=== PATIENT | female | born 1950 | race Caucasian/White ===

== ENCOUNTER 2017-04-09 16:35 | Outpatient (CLI) | payer MEDICARE ==
--- NOTE | 2017-04-09 17:53 | RAD ---
AP ABDOMINAL RADIOGRAPH 04/09/17 HISTORY: Stricture of sigmoid colon. COMPARISON: 03/02/16. FINDINGS: There is radiopaque suture material overlying the right abdomen as well as the pelvis also seen on pr ior study. There is a moderate amount of retained fecal material in the region of the ascending colon . Bowel gas pattern is otherwise nonspecific. No dilated loops of small bowel are appreciated. Vascul ar calcifications and phleboliths again overlie the pelvis. Degenerative changes are noted in the spi ne. IMPRESSION: Postsurgical changes of the abdomen. There is mild distention of the ascending colon with moderate am ount of retained fecal material. Bowel gas pattern is otherwise nonspecific. POS: CHANTELLE
== END 2017-04-09 16:36 | disposition home or self-care (01) ==
LOC: RAD 16:35
PROVIDERS: ATTEND Internal Medicine Gastroenterology
DX: K56.699 Other intestinal obstruction unspecified as to partial versus complete obstruction (principal); D50.0 Iron deficiency anemia secondary to blood loss (chronic); R14.0 Abdominal distension (gaseous); Z98.890 Other specified postprocedural states
CPT/HCPCS: 74018

== ENCOUNTER 2017-05-26 10:00 | Inpatient (IN) | payer MEDICARE ==
[2017-05-26 11:01] VITALS: BMI 22.8
[2017-05-27] MEDS ORDERED: cefOXitin 2 GM in Sodium Chloride 0.9% 100 ML IVPB SCH ×2 (06:15→14:00)
[2017-05-27] MEDS ORDERED: Fentanyl 250 MCG/5 ML VIAL ONE (06:39)
[2017-05-27] MEDS ORDERED: Midazolam HCl 2 mg/2 ml Vial ONE ×2 (06:39→07:09)
[2017-05-27] MEDS ORDERED: Ondansetron HCl/PF 4 MG/2 ML Vial ONE ×2 (06:52→11:26)
[2017-05-27] MEDS ORDERED: Fentanyl 100 MCG/2 ML VIAL ONE (07:09)
[2017-05-27] MEDS ORDERED: HYDROmorphone 2 MG/ML VIAL SLOW IVP PRN (09:53)
[2017-05-27] MEDS ORDERED: Promethazine HCl 25 MG/ML VIAL IM PRN ×3 (09:53→17:09)
[2017-05-27] MEDS ORDERED: Promethazine HCl 25 MG/ML VIAL SLOW IVP PRN (09:53)
[2017-05-27] MEDS ORDERED: Ondansetron HCl/PF 4 MG/2 ML Vial IVP PRN ×3 (09:53→17:09)
[2017-05-27] MEDS ORDERED: cefOXitin 2 GM VIAL ONE (10:14)
[2017-05-27] MEDS ORDERED: Bupivacaine HCl 0.5%/Epinephrine 1:200,000/PF 30 ml Vial ONE (11:15)
[2017-05-27] MEDS ORDERED: Lidocaine 1% PF 5 ML VIAL ONE (11:26)
[2017-05-27] MEDS ORDERED: PHENYLEPHRINE-NS 100 MCG/ML 10 ML SYRINGE ONE (11:26)
[2017-05-27] MEDS ORDERED: ePHEDrine/0.9% NaCl/PF SYRINGE 50 mg/10 ml ONE (11:26)
[2017-05-27] MEDS ORDERED: diphenhydrAMINE 50 MG/ML VIAL ONE (11:26)
[2017-05-27] MEDS ORDERED: Glycopyrrolate 0.2 MG/ML 5 ML SYRINGE ONE (11:26)
[2017-05-27] MEDS ORDERED: PROPOFOL 200 MG/20 ML VIAL ONE (11:26)
[2017-05-27] MEDS ORDERED: Promethazine HCl 25 MG/ML VIAL ONE (11:59)
[2017-05-27] MEDS ORDERED: hydrALAZINE 20 MG/ML VIAL SLOW IVP PRN (12:26)
[2017-05-27] MEDS: Sodium Chloride 0.9% 1,000 ML IV SCH ×2 (14:04→21:12)
[2017-05-27] MEDS: cefOXitin 2 GM, Syringe 1 ML in Sterile Water 10 ML SLOW IVP SCH ×2 (14:59→21:11)
[2017-05-27] MEDS ORDERED: Fentanyl 100 MCG/2 ML VIAL SLOW IVP PRN ×3 (15:31→17:13)
[2017-05-27] MEDS: Acetaminophen 1,000 MG in Premix Bag 1 BAG IVPB SCH ×2 (15:52→17:37)
[2017-05-27] MEDS ORDERED: diphenhydrAMINE 25 MG CAP PO PRN (17:09)
[2017-05-27] MEDS ORDERED: Naloxone HCl 0.4 mg/ml Vial IV PRN (17:09)
[2017-05-27] MEDS ORDERED: Zolpidem Tartrate 5 MG TAB PO PRN (17:09)
[2017-05-27] MEDS ORDERED: Fentanyl 5000 MCG/250 ML CADD IVPB PRN (17:09)
[2017-05-27] MEDS ORDERED: diphenhydrAMINE 50 MG/ML VIAL IVP PRN (17:09)
[2017-05-27] MEDS ORDERED: diphenhydrAMINE 50 MG/ML VIAL IM PRN (17:09)
[2017-05-27] MEDS ORDERED: Fentanyl 100 MCG/2 ML VIAL SLOW IVP SCH (17:15)
[2017-05-27] MEDS ORDERED: Communication Order-Pharmacy FS SCH (17:15)
[2017-05-27] MEDS: Ketorolac Tromethamine 30 MG/ML VIAL IVP SCH (17:37)
[2017-05-27] MEDS ORDERED: fentaNYL Citrate/PF 2,000 MCG in Sodium Chloride 0.9% 60 ML IV PRN (17:45)
[2017-05-27] MEDS: Famotidine 20 MG TAB PO SCH (21:10)
[2017-05-27] MEDS: Enoxaparin Sodium 40 MG/0.4 ML SYRINGE SC SCH (21:10)
[2017-05-27] MEDS: Famotidine/PF 20 mg/2ml Vial SLOW IVP SCH (21:11)
[2017-05-28] MEDS: Ketorolac Tromethamine 30 MG/ML VIAL IVP SCH ×5 (00:12→23:38)
[2017-05-28] MEDS: Acetaminophen 1,000 MG in Premix Bag 1 BAG IVPB SCH ×2 (00:13→06:46)
[2017-05-28 03:47] LABS: #Lymphocytes 1.2 thou/uL (1.20-3.40); #Monocytes 0.9 thou/uL (0.11-0.59); #Neutrophils 7.4 thou/uL (1.40-6.50); %Basophils 0.2 % (0.0-1.0); %Eosinophils 0.2 % (0.0-10.0); %Lymphocytes 12.6 % (21.0-51.0); %Monocytes 9.7 % (0.0-10.0); %Neutrophils 77.3 % (42.0-75.0); Hemoglobin 11.2 g/dL (12.0-16.0); Mean Corpuscular HGB CONC 34.6 g/dL (32.0-36.0); Mean Corpuscular Hemoglobin 31.5 pg (27.0-31.0); Mean Corpuscular Volume 90.9 fl (81.0-99.0); Platelet Count 188 thou/uL (130-400); RBC Distribution Width 11.9 % (11.5-14.5); Red Blood Cell (RBC) Count 3.56 mill/uL (4.20-5.40); White Blood Cell (WBC) Count 9.6 thou/uL (4.8-10.8)
[2017-05-28 04:09] LABS: Anion Gap 9 mmol/L (10-20); BUN (Urea Nitrogen) 13 mg/dL (9.8-20.1); Calc. Creatinine Clearance 47 mL/min (70-130); Calcium 7.9 mg/dL (7.8-10.44); Carbon Dioxide 25 mmol/L (23-31); Chloride 102 mmol/L (98-107); Estimated GFR-MDRD 52; Glucose 106 mg/dL (80-115); Potassium 4.1 mmol/L (3.5-5.1); Sodium 132 mmol/L (136-145)
[2017-05-28] MEDS: Famotidine 20 MG TAB PO SCH ×2 (09:10→20:50)
[2017-05-28] MEDS: Sodium Chloride 0.9% 1,000 ML IV SCH (09:12)
[2017-05-28] MEDS: Famotidine/PF 20 mg/2ml Vial SLOW IVP SCH (09:28)
--- NOTE | 2017-05-28 10:26 | PDOC.GSPN ---
Surgery Progress Note: Subj - Subjective Patient reports: tolerating liquids well (Pain well controlled, no nausea) Surgery Progress Note: Obj - Vital signs Vital signs: Vital Signs - Most Recent Temp Pulse Resp BP Pulse Ox 97.7 F 77 17 126/77 98 05/28/17 07:55 05/28/17 07:55 05/28/17 07:55 05/28/17 07:55 05/28/17 07:55 - Physical Exam General: no distress Cardiovascular: regular rate and rhythm Respiratory: clear to auscultation Abdomen: soft, appropriately tender Wound: healing well, ostomy/colostomy (in right lower quadrant) Surgery Progress Note: Results - Labs Result Diagrams: 05/28/17 03:14 05/28/17 03:14 Lab results: Laboratory Results - last 24 hr 05/28/17 05/28/17 03:14 03:14 WBC 9.6 RBC 3.56 L Hgb 11.2 L Hct 32.3 L MCV 90.9 MCH 31.5 H MCHC 34.6 RDW 11.9 Plt Count 188 MPV 8.0 Neutrophils % 77.3 H Lymphocytes % 12.6 L Monocytes % 9.7 Eosinophils % 0.2 Basophils % 0.2 Neutrophils # 7.4 H Lymphocytes # 1.2 Monocytes # 0.9 H Eosinophils # 0.0 Basophils # 0.0 Sodium 132 L Potassium 4.1 Chloride 102 Carbon Dioxide 25 Anion Gap 9 L BUN 13 Creatinine 1.05 Estimated GFR (MDRD) 52 Glucose 106 Calcium 7.9 Surgery Progress Note: A/P - Problem (1) Anastomotic stricture of colorectal region Current Visit: Yes Code(s): K91.30 - POSTPROC INTESTINAL OBST, UNSP TO PARTIAL VERSUS COMPLETE Status: Acute - Plan Plan: Full liquid diet for dinner, DC syed tomorrow.
[2017-05-28] MEDS: Enoxaparin Sodium 40 MG/0.4 ML SYRINGE SC SCH (20:50)
[2017-05-29] MEDS: Ketorolac Tromethamine 30 MG/ML VIAL IVP SCH ×3 (05:56→18:19)
[2017-05-29] MEDS: Sodium Chloride 0.9% 1,000 ML IV SCH (05:56)
[2017-05-29] MEDS ORDERED: Dextrose 5% in Water 1,000 ML IV PRN (09:41)
[2017-05-29] MEDS ORDERED: HumaLOG 300 UNITS/3 ML VIAL SC PRN (09:41)
[2017-05-29] MEDS ORDERED: Dextrose 50% Abboject 50 ML SYRINGE SLOW IVP PRN (09:41)
--- NOTE | 2017-05-29 09:44 | PDOC.GSPN ---
Surgery Progress Note: Subj - Subjective Patient reports: no new complaints, tolerating liquids well (Had weakness episode yesterday with low bp that has resolved.) Surgery Progress Note: Obj - Vital signs Vital signs: Vital Signs - Most Recent Temp Pulse Resp BP Pulse Ox 98.2 F 92 20 124/68 96 05/29/17 08:30 05/29/17 08:30 05/29/17 08:30 05/29/17 08:30 05/29/17 08:30 - Physical Exam General: no distress Abdomen: soft, nondistended, decreased bowel sounds Wound: healing well (YARELIS's more sangrenous than serous) Surgery Progress Note: Results - Labs Result Diagrams: 05/28/17 03:14 05/28/17 03:14 Surgery Progress Note: A/P - Problem (1) Anastomotic stricture of colorectal region Current Visit: Yes Code(s): K91.30 - POSTPROC INTESTINAL OBST, UNSP TO PARTIAL VERSUS COMPLETE Status: Acute Assessment and Plan: Check H&H with more bloody drain output. Stay on Fulls today. Borderline accuchecks, will add sliding scale
[2017-05-29] MEDS: Famotidine 20 MG TAB PO SCH (20:30)
[2017-05-30] MEDS: Sodium Chloride 0.9% 1,000 ML IV SCH (03:13)
[2017-05-30 04:21] LABS: #Eosinphils 0.2 thou/uL (0.0-0.7); #Lymphocytes 0.8 thou/uL (1.20-3.40); #Monocytes 0.6 thou/uL (0.11-0.59); #Neutrophils 5.5 thou/uL (1.40-6.50); %Basophils 0.3 % (0.0-1.0); %Eosinophils 2.3 % (0.0-10.0); %Lymphocytes 11.9 % (21.0-51.0); %Monocytes 8.6 % (0.0-10.0); Hemoglobin 7.9 g/dL (12.0-16.0); Mean Corpuscular HGB CONC 33.8 g/dL (32.0-36.0); Mean Corpuscular Volume 88.7 fl (81.0-99.0); Mean Platelet Volume 8.3 fL (7.4-10.4); Platelet Count 173 thou/uL (130-400); RBC Distribution Width 13.9 % (11.5-14.5); Red Blood Cell (RBC) Count 2.64 mill/uL (4.20-5.40); White Blood Cell (WBC) Count 7.1 thou/uL (4.8-10.8)
[2017-05-30 04:27] LABS: Anion Gap 8 mmol/L (10-20); BUN (Urea Nitrogen) 6 mg/dL (9.8-20.1); Calc. Creatinine Clearance 70 mL/min (70-130); Calcium 8.1 mg/dL (7.8-10.44); Carbon Dioxide 25 mmol/L (23-31); Chloride 107 mmol/L (98-107); Estimated GFR-MDRD 82; Glucose 101 mg/dL (80-115); Sodium 136 mmol/L (136-145)
--- NOTE | 2017-05-30 09:23 | OP ---
DATE OF PROCEDURE: 05/27/2017 PREOPERATIVE DIAGNOSES: 1. Stricture of previous anastomosis in the left colon, descending colon to sigmoid colon, near obst ructing. 2. History of severe diverticulitis with colovaginal fistula. 3. Incisional hernia, large, with loss of domain. POSTOPERATIVE DIAGNOSES: 1. Stricture of previous anastomosis in the left colon, descending colon to sigmoid colon, near obst ructing. 2. History of severe diverticulitis with colovaginal fistula. 3. Incisional hernia, large, with loss of domain. PROCEDURES PERFORMED: 1. Open redo left colectomy with low pelvic anastomosis. 2. Incisional hernia repair with allograft mesh (Strattice 10 x 15 cm). 3. Local muscle rotational flap (release of left component anterior). 4. Diverting loop ileostomy. SURGEON: Chucho Díaz M.D. ANESTHESIA: General. ESTIMATED BLOOD LOSS: 50 mL COMPLICATIONS: None. SPECIMEN: Anastomosis to the left colon. TECHNIQUE: The patient was taken to the operating room and placed supine on the table. After genera l anesthetic was obtained, Camarillo was placed with the patient in lithotomy position. Her abdomen is p repped and draped in a sterile fashion. Midline incision is made from above the umbilicus down throu gh previous scar all the way down towards the pubis. Cautery was dissected down into the abdominal c avity. There were minimal adhesions in the abdomen. There were some adhesions in the pelvis around the old anastomosis. These were all taken down carefully. There was one area of small bowel adheren ce to the previous anastomosis that was very tight. Dissecting the small bowel off of the colon here , there was an enterotomy made on the small bowel. This was in the mid small bowel. In this area, u ltimately a little small bowel resection was performed using DELON-75 stapler. The common enterotomy w as closed using TA-60 stapler. Dissection was taken down past the previous anastomosis in the low pe lvis. The left ureter was found and excluded from the dissection. Contour stapler fired across the upper to mid rectum. Adhesions in the left upper quadrant in the area of previous splenic flexure w ere all taken down allowing for full mobilization. The colon was able to be brought down into the pe lvis under no tension. A 31 anvil was passed proximally and out the antimesenteric side of the colon proximally just distal to this, contour stapler was used to fire across the colon. This anvil was b rought down into the pelvis under no tension. The base for the EEA stapler was brought up through th e anus and its sharp pin brought out on the antimesenteric surface of the colon below. Connected to the anvil from above, tightened into the green zone and fired, there were two good rings of tissue. This anastomosis was oversewn using serosal silk sutures. In the right lower quadrant just proximal to previous ileostomy reversal, the small bowel was able to be brought up through a cruciate incisio n made in the right lateral lower quadrant fascia and held outside the abdomen with a Weston. Next, the component separation was performed. Flaps were raised on top of the muscle anteriorly on the pa tient's left and right. The fat tissue around the ileostomy site was left intact. Release of the le ft rectus muscle sheath was performed by incising a cm lateral to the rectus sheath. The anterior fa scia was released all the way from the groin crease all the way to the rib cage. This allowed for th e left rectus sheath to be pulled way over under no tension. Strattice mesh was brought into the linda rile field. A 10 x 14 piece was laid in an underlay form and sutures of Prolene was used to affix it to the posterior fascia. The fascia anteriorly was able to be closed under no tension using a PDS s uture. Meticulous hemostasis was obtained in the subcutaneous tissue and the area of this wide disse ction in the subcutaneous space. Two #19 round drains were brought out through separate stab incisio n and sewn in place using silk. Skin was closed using interrupted Vicryls and 4-0 Monocryl and Erda love. The ostomy was then matured in the usual fashion using 3-0 Vicryl and an ostomy device was sandor minesh. The patient is en route to recovery in stable condition. All instrument counts, needle counts, lap counts are correct.
--- NOTE | 2017-05-30 13:44 | PDOC.GSPN ---
Surgery Progress Note: Subj - Subjective Patient reports: no new complaints Surgery Progress Note: Obj - Vital signs Vital signs: Vital Signs - Most Recent Temp Pulse Resp BP Pulse Ox 98.2 F 85 14 158/70 H 95 05/30/17 11:23 05/30/17 11:23 05/30/17 11:23 05/30/17 11:23 05/30/17 11:23 - Physical Exam General: no distress Respiratory: clear to auscultation Abdomen: soft, non tender, nondistended Wound: healing well (Wang's less sanguenous) Surgery Progress Note: Results - Labs Result Diagrams: 05/30/17 03:05 05/30/17 03:05 Lab results: Laboratory Results - last 24 hr 05/30/17 05/30/17 05/30/17 00:07 03:05 03:05 WBC 7.1 RBC 2.64 L Hgb 7.9 L Hct 23.5 L MCV 88.7 MCH 30.0 MCHC 33.8 RDW 13.9 Plt Count 173 MPV 8.3 Neutrophils % 77.0 H Lymphocytes % 11.9 L Monocytes % 8.6 Eosinophils % 2.3 Basophils % 0.3 Neutrophils # 5.5 Lymphocytes # 0.8 L Monocytes # 0.6 H Eosinophils # 0.2 Basophils # 0.0 Sodium 136 Potassium 4.0 Chloride 107 Carbon Dioxide 25 Anion Gap 8 L BUN 6 L Creatinine 0.71 Estimated GFR (MDRD) 82 Glucose 101 POC Glucose 99 Calcium 8.1 05/30/17 05/30/17 05:43 11:21 WBC RBC Hgb Hct MCV MCH MCHC RDW Plt Count MPV Neutrophils % Lymphocytes % Monocytes % Eosinophils % Basophils % Neutrophils # Lymphocytes # Monocytes # Eosinophils # Basophils # Sodium Potassium Chloride Carbon Dioxide Anion Gap BUN Creatinine Estimated GFR (MDRD) Glucose POC Glucose 106 156 H Calcium Surgery Progress Note: A/P - Problem (1) Anastomotic stricture of colorectal region Current Visit: Yes Code(s): K91.30 - POSTPROC INTESTINAL OBST, UNSP TO PARTIAL VERSUS COMPLETE Status: Acute Assessment and Plan: H&H better. Advance diet to gi soft. Added lomotil for higher output ileostomy
[2017-05-30] MEDS: Diphenoxylate HCl/Atropine Tablet PO SCH ×2 (14:23→20:28)
[2017-05-30] MEDS ORDERED: Ondansetron ODT 4 MG TAB PO PRN (18:53)
[2017-05-30] MEDS: Famotidine 20 MG TAB PO SCH (20:28)
[2017-05-31 06:50] LABS: Hemoglobin 7.7 g/dL (12.0-16.0)
[2017-05-31] MEDS ORDERED: Amlodipine 10 MG TAB PO SCH (09:00)
[2017-05-31] MEDS: Diphenoxylate HCl/Atropine Tablet PO SCH (09:06)
[2017-05-31] MEDS ORDERED: HYDROcodone/Acetaminophen 10/325 mg Tablet PO PRN ×2 (09:12)
[2017-05-31 11:11] VITALS: BP 153/75; TEMP 98.2
== END 2017-05-31 11:50 | disposition home or self-care (01) | DRG 330 ==
LOC: SURG A 05-27 05:56
PROVIDERS: ADMIT Surgery; ATTEND Surgery
PROC: 3E0T3BZ Introduction of Anesthetic Agent into Peripheral Nerves and Plexi, Percutaneous Approach (ICD-10-PCS; 2017-05-27)
PROC: 3E0T3BZ Introduction of Anesthetic Agent into Peripheral Nerves and Plexi, Percutaneous Approach (ICD-10-PCS; 2017-05-27)
PROC: 0DTE0ZZ Resection of Large Intestine, Open Approach (ICD-10-PCS; principal; 2017-05-29)
PROC: 0D1B0Z4 Bypass Ileum to Cutaneous, Open Approach (ICD-10-PCS; 2017-05-29)
PROC: 0DB80ZZ Excision of Small Intestine, Open Approach (ICD-10-PCS; 2017-05-29)
PROC: 0KNL0ZZ Release Left Abdomen Muscle, Open Approach (ICD-10-PCS; 2017-05-29)
PROC: 0WUF0KZ Supplement Abdominal Wall with Nonautologous Tissue Substitute, Open Approach (ICD-10-PCS; 2017-05-29)
PROC: 30233N1 Transfusion of Nonautologous Red Blood Cells into Peripheral Vein, Percutaneous Approach (ICD-10-PCS; 2017-05-29)
DX: K91.89 Other postprocedural complications and disorders of digestive system (principal); K56.51 Intestinal adhesions [bands], with partial obstruction; K43.2 Incisional hernia without obstruction or gangrene; E11.9 Type 2 diabetes mellitus without complications; I10 Essential (primary) hypertension; Z87.19 Personal history of other diseases of the digestive system
CPT/HCPCS: 36415; 36416; 36430; 80048; 83036; 85014; 85018; 85025; 86850; 86900; 86901; 88304; 88307; 93005; 93010; A4216; J0131; J0670; J0694; J1200; J1650; J1885; J2001; J2250; J2405; J2550; J2704; J3010; J7050; J7620; P9016; Q4100; S0028

== ENCOUNTER 2017-07-14 07:00 | Inpatient (IN) | payer MEDICARE ==
[2017-07-11 13:50] VITALS: BMI 21.0
[2017-07-14] MEDS ORDERED: CEFAZOLIN/Water 2 GM/20 ML SYRINGE ONE (07:21)
[2017-07-14] MEDS ORDERED: Fentanyl 100 MCG/2 ML VIAL ONE ×2 (09:42→11:02)
[2017-07-14] MEDS ORDERED: Bupivacaine/Epinephrine 0.25% 30 ML VIAL ONE (10:19)
[2017-07-14] MEDS ORDERED: Lidocaine 1% PF 5 ML VIAL ONE (10:39)
[2017-07-14] MEDS ORDERED: Ondansetron HCl/PF 4 MG/2 ML Vial ONE ×2 (10:39→10:56)
[2017-07-14] MEDS ORDERED: Glycopyrrolate 0.2 MG/ML 5 ML SYRINGE ONE (10:39)
[2017-07-14] MEDS ORDERED: Dexamethasone 20 MG/5 ML VIAL ONE (10:39)
[2017-07-14] MEDS ORDERED: PROPOFOL 200 MG/20 ML VIAL ONE (10:39)
[2017-07-14] MEDS ORDERED: Promethazine HCl 25 MG/ML VIAL IM PRN ×2 (10:50→11:16)
[2017-07-14] MEDS ORDERED: Promethazine HCl 25 MG/ML VIAL SLOW IVP PRN (10:50)
[2017-07-14] MEDS ORDERED: Ondansetron HCl/PF 4 MG/2 ML Vial IVP PRN (10:50)
[2017-07-14] MEDS ORDERED: Promethazine HCl 25 MG/ML VIAL ONE (10:57)
[2017-07-14] MEDS ORDERED: hydrALAZINE 20 MG/ML VIAL SLOW IVP PRN (11:16)
[2017-07-14] MEDS ORDERED: Ketorolac Tromethamine 30 MG/ML VIAL IVP PRN (11:16)
[2017-07-14] MEDS: Sodium Chloride 0.9% 1,000 ML IV SCH (12:07)
[2017-07-14] MEDS: Acetaminophen 1,000 MG in Premix Bag 1 BAG IVPB SCH ×3 (12:07→23:18)
[2017-07-14] MEDS: Ondansetron HCl/PF 4 MG/2 ML Vial IVP PRN ×2 (12:49→18:42)
[2017-07-14] MEDS: cefOXitin 2 GM in Sodium Chloride 0.9% 100 ML IVPB SCH ×2 (16:14→23:19)
[2017-07-14] MEDS: Fentanyl 100 MCG/2 ML VIAL SLOW IVP PRN ×2 (16:19→20:26)
[2017-07-14] MEDS ORDERED: Prevnar 13-Val Conj/PF 0.5 ML SYRINGE IM ONE (16:45)
[2017-07-14] MEDS: Famotidine 20 MG TAB PO SCH (20:23)
[2017-07-14] MEDS: Enoxaparin Sodium 40 MG/0.4 ML SYRINGE SC SCH (20:23)
[2017-07-15] MEDS: Fentanyl 100 MCG/2 ML VIAL SLOW IVP PRN ×6 (03:47→21:32)
[2017-07-15] MEDS: Sodium Chloride 0.9% 1,000 ML IV SCH ×2 (03:48→16:35)
[2017-07-15 05:28] LABS: #Lymphocytes 1.5 thou/uL (1.20-3.40); #Monocytes 1.1 thou/uL (0.11-0.59); #Neutrophils 8.7 thou/uL (1.40-6.50); %Basophils 0.3 % (0.0-1.0); %Eosinophils 0.2 % (0.0-10.0); %Lymphocytes 13.2 % (21.0-51.0); %Monocytes 9.9 % (0.0-10.0); %Neutrophils 76.5 % (42.0-75.0); Mean Corpuscular HGB CONC 32.6 g/dL (32.0-36.0); Mean Corpuscular Hemoglobin 28.2 pg (27.0-31.0); Mean Corpuscular Volume 86.5 fl (81.0-99.0); Mean Platelet Volume 7.2 fL (7.4-10.4); Platelet Count 284 thou/uL (130-400); RBC Distribution Width 13.3 % (11.5-14.5); Red Blood Cell (RBC) Count 4.24 mill/uL (4.20-5.40); White Blood Cell (WBC) Count 11.4 thou/uL (4.8-10.8)
[2017-07-15 05:42] LABS: Anion Gap 7 mmol/L (10-20); BUN (Urea Nitrogen) 11 mg/dL (9.8-20.1); Calc. Creatinine Clearance 53 mL/min (70-130); Calcium 8.5 mg/dL (7.8-10.44); Carbon Dioxide 26 mmol/L (23-31); Chloride 104 mmol/L (98-107); Estimated GFR-MDRD 67; Glucose 108 mg/dL (80-115); Potassium 3.4 mmol/L (3.5-5.1); Sodium 134 mmol/L (136-145)
[2017-07-15] MEDS: Acetaminophen 1,000 MG in Premix Bag 1 BAG IVPB SCH (06:11)
[2017-07-15] MEDS: Famotidine 20 MG TAB PO SCH ×2 (07:58→21:31)
--- NOTE | 2017-07-15 08:30 | PRG ---
DATE OF SERVICE: 07/15/2017 Postop day #1, ileostomy reversal. Ms. Jacobs has nausea. She had that before her surgery. No vomitin g. She passed a small amount of stool. Her pain is controlled. PHYSICAL EXAMINATION: VITAL SIGNS: She is afebrile. Vital signs are stable. ABDOMEN: Her abdomen is soft, nondistended with bowel sounds. Her dressings have a little bit of dr garrett on them which is consistent with the underlying Stuart drain. LABORATORY: Hemoglobin 12, creatinine 0.85. ASSESSMENT: Postop day #1, ileostomy reversal. PLAN: Continue clear liquids today and IV fluids given her nausea. I recommend she ambulate.
[2017-07-15] MEDS: Amlodipine 10 MG TAB PO SCH (08:41)
[2017-07-15] MEDS ORDERED: Prevnar 13-Val Conj/PF 0.5 ML SYRINGE IM ONE (09:00)
[2017-07-15] MEDS: Ondansetron HCl/PF 4 MG/2 ML Vial IVP PRN (09:26)
--- NOTE | 2017-07-15 14:22 | OP ---
DATE OF PROCEDURE: 07/14/2017 PREOPERATIVE DIAGNOSES: 1. Ileostomy dysfunction. 2. History of colovesical fistula. POSTOPERATIVE DIAGNOSES: 1. Ileostomy dysfunction. 2. History of colovesical fistula. PROCEDURES PERFORMED: Ileostomy reversal, small bowel resection and anastomosis. SURGEON: Chucho Díaz M.D. ANESTHESIA: General. ESTIMATED BLOOD LOSS: Minimal. COMPLICATIONS: None. SPECIMEN: Small intestine. TECHNIQUE: The patient was taken to the operating room and placed supine on the table. After genera l anesthetic was obtained, the ostomy mucosa was sewn shut. The abdomen was prepped and draped in a sterile fashion. An elliptical incision was made around the ostomy mucosa from the surrou nding skin. Dissection was taken down in the subcutaneous fat along the edges of the small intestine all the way to the fascia. The fascia was entered without difficulty. All posterior adhesions were taken down. The small bowel ileostomy segment was able to be brought up in the wound under no tensi on. DELON-75 was fired across the small intestine just proximal and distal to the skin mucosa. The re sultant mesentery was taken using Andressa clamps and silk ties. The resultant two ends of small intest ine are able to be brought together in an antimesenteric fashion. Enterotomy was mainly antimesenter ic surface of each. A [id number] DELON-75 stapler was used for the anastomosis. The common enteroto my was closed using a TA-60 stapler. The common enterotomy staple line was inverted using silk sutur es. A crotch stitch was placed using silk suture. The anastomosis was placed back into the abdomina l cavity. The wound was irrigated. Local anesthetic was applied. The fascia was closed in two laye rs using PDS suture. Subcutaneous tissues were irrigated. The skin was closed using a pursestring o f Prolene suture. Stuart was left in the middle of the wound followed by sterile dressings. The pa tient was en route to recovery in stable condition. All sponge counts, needle counts, lap counts wer e correct.
[2017-07-15] MEDS: Enoxaparin Sodium 40 MG/0.4 ML SYRINGE SC SCH (21:31)
[2017-07-16] MEDS: Fentanyl 100 MCG/2 ML VIAL SLOW IVP PRN ×2 (04:37→09:54)
[2017-07-16] MEDS: Sodium Chloride 0.9% 1,000 ML IV SCH (04:38)
[2017-07-16] MEDS: Famotidine 20 MG TAB PO SCH ×2 (09:46→20:15)
[2017-07-16] MEDS: Amlodipine 10 MG TAB PO SCH (09:47)
[2017-07-16] MEDS ORDERED: HYDROcodone/Acetaminophen 10/325 mg Tablet PO PRN (13:52)
--- NOTE | 2017-07-16 13:54 | PDOC.GSPN ---
Surgery Progress Note: Subj - Subjective Patient reports: no new complaints, tolerating liquids well Surgery Progress Note: Obj - Vital signs Vital signs: Vital Signs - Most Recent Temp Pulse Resp BP Pulse Ox 98.1 F 79 14 144/68 H 94 L 07/16/17 11:23 07/16/17 11:23 07/16/17 11:23 07/16/17 11:23 07/16/17 11:23 - Physical Exam General: no distress Respiratory: clear to auscultation Abdomen: soft, non tender, nondistended Surgery Progress Note: Results - Labs Result Diagrams: 07/15/17 04:54 07/15/17 04:54 Surgery Progress Note: A/P - Problem (1) Anastomotic stricture of colorectal region Current Visit: No Code(s): K91.30 - POSTPROC INTESTINAL OBST, UNSP TO PARTIAL VERSUS COMPLETE Status: Acute (2) Ileostomy dysfunction Current Visit: No Code(s): K94.13 - ENTEROSTOMY MALFUNCTION Status: Acute - Plan Plan: Plan full liquids today and try oral pain control. Likely home tomorrow
[2017-07-16] MEDS: HYDROcodone/Acetaminophen 10/325 mg Tablet PO PRN ×2 (16:24→22:45)
[2017-07-16] MEDS: Enoxaparin Sodium 40 MG/0.4 ML SYRINGE SC SCH (20:15)
[2017-07-17 07:59] VITALS: BP 133/70; TEMP 97.7
[2017-07-17] MEDS: Amlodipine 10 MG TAB PO SCH (09:31)
[2017-07-17] MEDS: Famotidine 20 MG TAB PO SCH (09:31)
[2017-07-17] MEDS: HYDROcodone/Acetaminophen 10/325 mg Tablet PO PRN (10:59)
--- NOTE | 2017-07-17 11:33 | DIS ---
ADMIT DIAGNOSES: Ileostomy dysfunction, history of colorectal stricture. DISCHARGE DIAGNOSES: Ileostomy dysfunction, history of colorectal stricture. PROCEDURES: Ileostomy reversal with small bowel resection anastomosis by Dr. Díaz without complic ation. CONDITION AT DISCHARGE: Improved. STAFF: Dr. Chucho Díaz. HOSPITAL COURSE: See hospital chart for details of hospitalization.
== END 2017-07-17 11:20 | disposition home or self-care (01) | DRG 331 ==
LOC: SURG A 07:00
PROVIDERS: ADMIT Surgery; ATTEND Surgery
PROC: 0DBB0ZZ Excision of Ileum, Open Approach (ICD-10-PCS; principal; 2017-07-14)
DX: K94.13 Enterostomy malfunction (principal); Y83.3 Surgical operation with formation of external stoma as the cause of abnormal reaction of the patient, or of later complication, without mention of misadventure at the time of the procedure; I12.9 Hypertensive chronic kidney disease with stage 1 through stage 4 chronic kidney disease, or unspecified chronic kidney disease; N18.9 Chronic kidney disease, unspecified; E11.22 Type 2 diabetes mellitus with diabetic chronic kidney disease; D64.89 Other specified anemias; E78.5 Hyperlipidemia, unspecified; Z79.899 Other long term (current) drug therapy; Y92.9 Unspecified place or not applicable; Z88.6 Allergy status to analgesic agent; Z88.1 Allergy status to other antibiotic agents; Z91.09 Other allergy status, other than to drugs and biological substances; Z87.891 Personal history of nicotine dependence; Z87.19 Personal history of other diseases of the digestive system
CPT/HCPCS: 36415; 36416; 80048; 85025; 90471; 90670; G0009; J0131; J0694; J1100; J1650; J2001; J2405; J2550; J2704; J3010; J7050

== ENCOUNTER 2018-03-16 11:14 | Outpatient (CLI) | payer MEDICARE | END 2018-03-16 11:15 | disposition home or self-care (01) | LOC: LABBT 11:14 | PROVIDERS: ATTEND Surgery | DX: Z01.810 Encounter for preprocedural cardiovascular examination (principal); K43.2 Incisional hernia without obstruction or gangrene | CPT/HCPCS: 93005; 93010 ==

== ENCOUNTER 2018-03-23 09:21 | Observation (INO) | payer MEDICARE ==
[2018-03-23] MEDS ORDERED: Scopolamine 1.5 mg/72 hour Patch ONE (10:50)
[2018-03-23] MEDS ORDERED: CEFAZOLIN 2 GM/50 ML BAG ONE (10:50)
[2018-03-23] MEDS ORDERED: Fentanyl 100 MCG/2 ML VIAL ONE ×5 (11:55→16:49)
[2018-03-23] MEDS ORDERED: Midazolam HCl 2 mg/2 ml Vial ONE (11:57)
[2018-03-23] MEDS ORDERED: Bupivacaine HCl 0.25%/Epi 0.0005/PF 10 ML VIAL FS ONE (11:57)
[2018-03-23] MEDS ORDERED: Ondansetron PF 4 MG/2 ML Vial ONE ×2 (13:42→14:03)
[2018-03-23] MEDS ORDERED: Glycopyrrolate 0.2 MG/ML 5 ML SYRINGE ONE (13:42)
[2018-03-23] MEDS ORDERED: Lidocaine 1% PF 5 ML VIAL ONE (13:42)
[2018-03-23] MEDS ORDERED: ePHEDrine/0.9% NaCl/PF SYRINGE 50 mg/10 ml ONE (13:42)
[2018-03-23] MEDS ORDERED: Rocuronium Bromide 10 MG/ML (10ML VIAL) ONE (13:42)
[2018-03-23] MEDS ORDERED: PROPOFOL 200 MG/20 ML VIAL ONE (13:42)
[2018-03-23] MEDS ORDERED: Dexamethasone 20 MG/5 ML VIAL ONE (13:42)
[2018-03-23] MEDS ORDERED: HYDROcodone/Acetaminophen 5/325 mg Tablet ONE (16:02)
[2018-03-23] MEDS ORDERED: Sodium Chloride 0.9% 10 ML ONE (16:50)
[2018-03-23] MEDS ORDERED: Promethazine HCl 25 MG/ML VIAL ONE (16:50)
[2018-03-23] MEDS ORDERED: diphenhydrAMINE 50 MG/ML VIAL IM PRN (17:47)
[2018-03-23] MEDS ORDERED: HYDROmorphone 10 mg/100 ml CADD IVPB PRN (17:47)
[2018-03-23] MEDS ORDERED: Promethazine HCl 25 MG/ML VIAL IM PRN ×2 (17:47→19:53)
[2018-03-23] MEDS ORDERED: diphenhydrAMINE 25 MG CAP PO PRN (17:47)
[2018-03-23] MEDS ORDERED: Ondansetron PF 4 MG/2 ML Vial IVP PRN ×2 (17:47→19:53)
[2018-03-23] MEDS ORDERED: Naloxone HCl 0.4 mg/ml Vial IV PRN (17:47)
[2018-03-23] MEDS ORDERED: diphenhydrAMINE 50 MG/ML VIAL IVP PRN (17:47)
[2018-03-23] MEDS ORDERED: Zolpidem Tartrate 5 MG TAB PO PRN (17:47)
[2018-03-23] MEDS ORDERED: Communication Order-Pharmacy FS SCH (18:00)
[2018-03-23] MEDS ORDERED: Dextrose 50% Abboject 50 ML SYRINGE SLOW IVP PRN ×2 (19:53)
[2018-03-23] MEDS ORDERED: Acetaminophen 1,000 MG in Premix Bag 1 BAG IVPB PRN (19:53)
[2018-03-23] MEDS ORDERED: HumaLOG 300 UNITS/3 ML VIAL SC PRN (19:53)
[2018-03-23] MEDS ORDERED: hydrALAZINE 20 MG/ML VIAL SLOW IVP PRN (19:53)
[2018-03-23] MEDS ORDERED: Dextrose 5% in Water 1,000 ML IV PRN (19:53)
--- NOTE | 2018-03-23 20:21 | OP ---
DATE OF PROCEDURE: 03/23/2018 PREOPERATIVE DIAGNOSIS: Incisional hernia. POSTOPERATIVE DIAGNOSIS: Incisional hernia. PROCEDURE PERFORMED: Da Luís laparoscopic incisional hernia repair with mesh, 8 cm Ventralex. ANESTHESIA: General. ESTIMATED BLOOD LOSS: Minimal. COMPLICATIONS: None. FINDINGS: Ostomy at former ileostomy site in the right lower quadrant. DESCRIPTION OF PROCEDURE: The patient was taken to the operating room and laid supine on the operating room table. After general anesthetic was obtained, a Camarillo was placed. The abdomen was shaved, prepped, and draped in a sterile fashion. Left subcostal 5-mm Optiview trocar was placed in usual fashion, and high-flow pneumoperitoneum was obtained. Right upper quadrant and left lower quadrant 8 mm robot trocars were placed at the 5-mm port site. The subcostal 5-mm port site was switched out to a 12-mm balloon trocar. High-flow pneumoperitoneum was obtained. All ports were docked to the robot. Surgeon goes to the console. Multiple adhesions were taken down from posterior abdominal wall from her prior midline incisional hernia repair. These were easy to take down. No damage to the intraabdominal structures. The right lower quadrant was exposed. There were few adhesions to the ostomy site, they were taken down using cautery. #1 V-Loc was used to close the fascial defect in the right lower quadrant. [address] mesh was marked on the exposed mesh side and rolled in place in the abdominal cavity. It was placed over the closed defect in the right lower quadrant and held in place using the needle from the #1 V-Loc. A 2-0 V-Loc was used to sew the mesh peripherally edges to the posterior fascia. Again, the exposed mesh site was placed up against the posterior fascia. The nonadherent area was left down in contact with the abdominal contents. All needles were removed from the abdomen. All port sites were used to infiltrate under local anesthetic at all port sites. All needles were removed and accounted for. All port sites were infiltrated using local anesthetic. GraNee needle 0 Vicryl tie was used to close the fascial defect at the 12-mm trocar site. All incisions were closed using 4-0 Monocryl and Dermabond. The patient was sent to Recovery in stable condition. All instrument counts, needle counts, and lap counts were correct. Job ID: [id number]
[2018-03-23] MEDS ORDERED: Fenofibrate Nanocrystallized 145 MG TAB PO SCH (21:00)
[2018-03-23] MEDS: Famotidine 20 MG TAB PO SCH (21:16)
[2018-03-23] MEDS: Sodium Chloride 0.9% 1,000 ML IV SCH (21:17)
[2018-03-23] MEDS: Famotidine/PF 20 mg/2ml Vial SLOW IVP SCH (21:18)
[2018-03-23 21:28] VITALS: BMI 28.2
[2018-03-24] MEDS: Famotidine/PF 20 mg/2ml Vial SLOW IVP SCH (08:23)
[2018-03-24] MEDS: Famotidine 20 MG TAB PO SCH (08:23)
[2018-03-24] MEDS ORDERED: Prevnar 13-Val Conj/PF 0.5 ML SYRINGE IM ONE (09:00)
[2018-03-24] MEDS ORDERED: Amlodipine 10 MG TAB PO SCH (09:00)
[2018-03-24] MEDS: Sodium Chloride 0.9% 1,000 ML IV SCH (10:02)
[2018-03-24] MEDS ORDERED: HYDROcodone/Acetaminophen 10/325 mg Tablet PO PRN ×2 (10:03)
--- NOTE | 2018-03-24 10:23 | DIS ---
DATE OF ADMISSION: 03/23/2018 DATE OF DISCHARGE: 03/24/2018 ADMIT DIAGNOSIS: Incisional hernia. DISCHARGE DIAGNOSIS: Incisional hernia. PROCEDURE: Laparoscopic robotic incisional hernia repair with mesh by Dr. Díaz without complication. CONDITION ON DISCHARGE: Improved. STAFF: Dr. Díaz. HOSPITAL COURSE: On postop day 1, the patient's pain is better controlled. She is able to discharge home. She will follow up with me in 2 weeks. Job ID: [id number]
[2018-03-24 11:40] VITALS: BP 159/76; TEMP 97.9
== END 2018-03-24 12:04 | disposition home or self-care (01) ==
LOC: SDC 09:21 → SURG A 19:11
PROVIDERS: ADMIT Surgery; ATTEND Surgery
PROC: 0WUF4JZ Supplement Abdominal Wall with Synthetic Substitute, Percutaneous Endoscopic Approach (ICD-10-PCS; principal; 2018-03-23)
DX: K43.2 Incisional hernia without obstruction or gangrene (principal); E78.5 Hyperlipidemia, unspecified; M19.90 Unspecified osteoarthritis, unspecified site; E11.9 Type 2 diabetes mellitus without complications; I10 Essential (primary) hypertension; Z87.891 Personal history of nicotine dependence; Z79.84 Long term (current) use of oral hypoglycemic drugs; Z79.899 Other long term (current) drug therapy; Z88.6 Allergy status to analgesic agent; Z88.8 Allergy status to other drugs, medicaments and biological substances; Z88.1 Allergy status to other antibiotic agents
CPT/HCPCS: 49654; 82962 ×2; 96361 ×2; 96374; 96375; C1781; G0378; 36416; J0131; J1100; J2001; J2250; J2405; J2550; J2704; J3010

== ENCOUNTER 2023-02-02 11:05 | Emergency (ER) | payer MEDICARE ==
[2023-02-02 12:29] LABS: SARS-CoV-2 NAA Rapid Test Not Detected (NotDetected)
== END 2023-02-02 13:13 | disposition home or self-care (01) ==
LOC: ERS 11:05
DX: J10.1 Influenza due to other identified influenza virus with other respiratory manifestations (principal); E78.2 Mixed hyperlipidemia; I10 Essential (primary) hypertension; Z79.899 Other long term (current) drug therapy; Z20.822 Contact with and (suspected) exposure to COVID-19; Z79.84 Long term (current) use of oral hypoglycemic drugs
CPT/HCPCS: 0240U; 71045; 87081; 87430; 99283

== ENCOUNTER 2024-04-06 09:37 | Emergency (ER) | payer MEDICARE ==
[2024-04-06] MEDS ORDERED: Ondansetron PF 4 MG/2 ML Vial ONE (09:59)
[2024-04-06 10:47] LABS: #Basophils 0.03 10x3/uL (0.0-0.2); #Eosinophils Less than 0.03 10x3/uL (0.0-0.7); %Basophils 0.6 % (0.0-1.0); %Eosinophils 0.4 % (0.0-10.0); %Lymphocytes 24.2 % (21.0-51.0); %Monocytes 14.3 % (0.0-10.0); %Neutrophils 58.5 % (42.0-75.0); Hematocrit 24.3 % (36.0-47.0); Hemoglobin 7.9 g/dL (12.0-16.0); Mean Corpuscular HGB CONC 32.5 g/dL (32.0-36.0); Mean Corpuscular Hemoglobin 27.6 pg (27.0-31.0); Mean Platelet Volume 10.6 fL (7.4-10.4); Platelet Count 239 10x3/uL (130-400); Red Blood Cell (RBC) Count 2.86 mill/uL (4.20-5.40)
[2024-04-06 11:13] LABS: Bacteria/HPF 4+ HPF (None Seen); Bilirubin Negative (Negative); Blood, Urine Negative (Negative); CAUTI Indications for Culture Alt mental st,lethar; Clarity Clear (Clear); Glucose, Urine (Dipstick) 200 mg/dL (Negative); Ketone, Urine Negative (Negative); Leukocyte 75 Leu/uL (Negative); Nitrite Negative (Negative); Protein, Urine (Dipstick) 30 mg/dL (Neg-Trace); RBC/HPF 0-3 HPF (0-3); Specific Gravity, Urine 1.019 (1.002-1.036); Urobilinogen Normal mg/dL (Less than 2)
[2024-04-06 11:18] LABS: ALT (SGPT) 9 U/L (Less than 34); AST (SGOT) 24 U/L (11-34); Albumin 3.4 g/dL (3.1-4.5); Alkaline Phosphatase 33 U/L (40-110); Anion Gap 16 mmol/L (10-20); BUN (Urea Nitrogen) 16 mg/dL (9.8-20.1); Bilirubin, Total 0.4 mg/dL (0.3-1.2); Calc. Creatinine Clearance 0 mL/min (70-130); Calcium 8.6 mg/dL (7.8-10.44); Carbon Dioxide 20 mmol/L (23-31); Chloride 103 mmol/L (98-107); Estimated GFR 52; Globulin 3.3 g/dL (2.4-3.5); Glucose 202 mg/dL (83-110); Lipase 47 U/L (8-78); Magnesium 1.9 mg/dL (1.6-2.6); Potassium 4.1 mmol/L (3.5-5.1); Protein, Total 6.7 g/dL (5.8-8.1); Sodium 135 mmol/L (136-145)
[2024-04-06 11:18] LABS: Urine Culture Reflex No No
[2024-04-06] MEDS ORDERED: Iopamidol-370 76% 500 ML MDV (1 ML CHARGE) ONE (11:34)
== END 2024-04-06 13:06 | disposition home or self-care (01) ==
LOC: ERS 09:37
DX: R05.9 Cough, unspecified (principal); R11.2 Nausea with vomiting, unspecified; E80.0 Hereditary erythropoietic porphyria; I10 Essential (primary) hypertension; E11.9 Type 2 diabetes mellitus without complications
CPT/HCPCS: 71045; 74177; 80053; 81001; 83690; 83735; 85025; 87428; J2405; 96361; 96374; Q9967